=== PATIENT | female | born 1960 ===

== ENCOUNTER → 2017-01-09 | Day surgery (SDC) | payer OTHER ==
--- NOTE | 2017-01-06 13:22 | History & Physical Pre-Op ---
General Information and HPI History of Present Illness: Kelly is a 57-year-old female with a long-standing and worsening complaint of painful hallux limitus left foot with associated painful and progressive hammertoes involving the second through fifth digits left foot. The patient has undergone an extended course of conservative care, including shoe gear and activity modification, rest, immobilization and courses of NSAIDs. None of this is yielded her any significant relief. The patient presents today for preoperative surgical consultation. The patient was referred to our office from Dusty Kumar DPM. Allergies/Medications Allergies: Coded Allergies: No Known Allergies (01/05/17) Home Med list Aspirin (Ecotrin*) 81 MG TABLET.DR 1 TAB PO DAILY PROPHO (Reported) Hydroxychlorquine (Plaquenil) 200 MG TABLET 2 TAB PO EVERY OTHER SKIN LUPUS ( Reported) Past History Medical History Hepatic: hepatitis C Musculoskeletal: osteoarthritis Surgical History Pertinent Surgical History: tubal ligation Review of Systems Review of Systems: Unremarkable except for that noted in history of present illness Exam & Diagnostic Data Physical Exam: Lungs clear bilaterally. Heart sounds rate and rhythm regular. Lower extremity physical exam demonstrates intact pedal pulses bilaterally. Both dorsalis pedis and posterior tibial arteries are palpable bilaterally. Patient without any sensory motor deficits. Deep tendon reflexes grossly intact. Patient noted to have same and pain with palpation range of motion to the left first metatarsophalangeal joint. The range of motion is noted to be diminished, especially in dorsiflexion. There is a hard end feel noted in dorsiflexion. Semi-reducible and painful hammertoes noted involving the second third fourth and fifth digits left foot. Assessment/Plan Assessment/Plan: Hallux limitus and painful hammertoes left foot. A lengthy discussion reviewing both surgical and conservative options was held the patient at bedside and the patient elected to go forward with surgery despite the risks. As Ranked By This Provider Problem List: 1. Hallux rigidus of left foot Attending MD Review Statement Attending Statement Attending MD Statement: examined this patient
[~2017-01-09] VITALS: Ht 175.3 cm; Wt 59.0 kg
[~2017-01-09] MED LIST: ASPIRIN EC81 M1 PO; PLAQUENIL200 M1 PO
--- NOTE | 2017-01-09 10:43 | Operative Report ---
Operative/Inv Procedure Report Surgery Date: 01/09/17 Name of Procedure: 1 Flores bunionectomy left 2 Arthroplasty second toe left foot 3 arthroplasty third toe left foot 4 arthroplasty fourth toe left foot 5 arthroplasty fifth toe left foot Pre-Operative Diagnosis: 1 hallux limitus left foot 2 hammertoe second toe left foot 3 hammertoe third toe left foot 4 hammertoe fourth toe left foot 5 hammertoe fifth toe left foot Post-Operative Diagnosis: The same Estimated Blood Loss: scant Surgeon/Search Engine Marketing Manager: [place] DPM Anesthesia: moderate sedation, block Operative/Procedure Note Note: After obtaining informed consent the patient was brought to the operating room and placed on the operating table in the supine position. The patient was then securely fastened to the operating table utilizing safety belt. After administration of IV sedation, 10 mL of 0.5% Marcaine plain was infiltrated about the patient's left ankle. Grams of Ancef were delivered intravenously times one dose. A well-padded ankle tourniquet was placed about the patient's left lower extremity. Left foot and ankle within scrubbed prepped and draped in usual aseptic manner. The left lower extremity was elevated to examine to limb, at which point the ankle tourniquet was inflated 250 mmHg. Attention directed dorsal aspect the left foot, where a 5 cm linear incision was made just medial to the course of the extensive list lungs tendon. The skin was incised with 15 blade and deepened subtenons tissues. The dissection was then carried down to the periosteum where a linear capsulotomy was performed. The medial eminence was then exposed and resected with a sagittal bone saw. The dissection was then carried onto the base of the proximal phalanx with the periosteum was incised and reflected. The base of the proximal phalanx was then resected with sagittal bone saw. The capture structures were repaired with 3-0 Vicryl and the subtenons tissues reapproximated 4-0 Vicryl. The skin edges were then reapproximated with 4-0 nylon. Attention was then directed to the second third fourth and fifth digits where transversely oriented semielliptical incisions centered over the proximal interphalangeal joint were incised with a 15 blade. He dissections were then carried down to the subtenons layers and the ellipses of skin were freed and passed from the operative field. Transverse tenotomies were then performed at the level of the proximal interphalangeal joints, exposing the heads of the proximal phalanges. These were then resected with a sagittal bone saw. The extensor tendons were then reapproximated with 4-0 Vicryl and the skin edges reapproximated with 4-0 nylon. The incisions were then dressed with Xeroform 4 x 4's Kerlix and an Sam wrap. The patient was noted to tolerate both procedure and anesthesia well and the patient was transported from the operating room to recovery with vital signs stable and vascular status intact to all digits left foot.
== END ==
LOC: STS 01:14
DX: M20.22 Hallux rigidus, left foot (principal); M20.42 Other hammer toe(s) (acquired), left foot; M20.5X2 Other deformities of toe(s) (acquired), left foot; M19.90 Unspecified osteoarthritis, unspecified site; Z86.19 Personal history of other infectious and parasitic diseases; F17.290 Nicotine dependence, other tobacco product, uncomplicated
CPT/HCPCS: 88304; J2001; J2250